=== PATIENT | male | born 1975 | race Caucasian/White ===

== ENCOUNTER → 2019-08-22 | Outpatient (REF) | payer BC ==
[2019-08-22 12:51] LABS: BASO % 0.2 % (0.0-1.0); EOS # 0.1 10^3/uL (0.0-0.5); EOS % 1.4 % (0.0-3.0); HEMATOCRIT 47.1 % (42.0-52.0); HEMOGLOBIN 16.6 g/dl (13.5-17.5); LYMPH # 1.4 10^3/uL (1.5-5.0); LYMPH % 28.4 % (24.0-44.0); MEAN CORPUSCULAR HEMOGLOBIN 30.9 pg (27.0-33.0); MEAN CORPUSCULAR HGB CONC 35.2 g/dl (32.0-36.5); MEAN CORPUSCULAR VOLUME 87.7 fl (80.0-96.0); MONO # 0.4 10^3/uL (0.0-0.8); MONO % 8.6 % (0.0-5.0); NEUTROPHILS % 61.2 % (36.0-66.0); PLATELET COUNT, AUTOMATED 166 10^3/uL (150-450); RED BLOOD COUNT 5.37 10^6/uL (4.30-6.10); WHITE BLOOD COUNT 4.9 10^3/uL (4.0-10.0)
[2019-08-22 13:39] LABS: ALBUMIN 4.2 GM/DL (3.2-5.2); ALT/SGPT 38 U/L (12-78); BILIRUBIN,TOTAL 1.8 MG/DL (0.2-1.0); BLOOD UREA NITROGEN 14 MG/DL (7-18); CALCIUM LEVEL 9.4 MG/DL (8.5-10.1); CARBON DIOXIDE LEVEL 31 MEQ/L (21-32); CHLORIDE LEVEL 103 MEQ/L (98-107); CHOLESTEROL LEVEL 159 MG/DL (<200); CHOLESTEROL RISK RATIO 2.944 (<5); CREATININE FOR GFR 0.92 MG/DL (0.70-1.30); FREE T4 1.35 NG/DL (0.76-1.46); GLOMERULAR FILTRATION RATE > 60.0 (>60); GLUCOSE, FASTING 100 MG/DL (70-100); HDL CHOLESTEROL 54 MG/DL (>40); LDL CHOLESTEROL 87 MG/DL (<100); MAGNESIUM LEVEL 2.2 MG/DL (1.8-2.4); NON-HDL-C 105 MG/DL; POTASSIUM SERUM 4.3 MEQ/L (3.5-5.1); SODIUM LEVEL 138 MEQ/L (136-145); TOTAL PROTEIN 7.9 GM/DL (6.4-8.2); TRIGLYCERIDES LEVEL 89 MG/DL (<150)
== END ==
LOC: M SFHCADAM 10:40
PROVIDERS: ATTEND Physician Assistant
DX: R00.2 Palpitations (principal); E66.01 Morbid (severe) obesity due to excess calories; Z13.1 Encounter for screening for diabetes mellitus; Z13.220 Encounter for screening for lipoid disorders

== ENCOUNTER → 2019-08-31 | Outpatient (CLI) | payer BC ==
--- NOTE | 2019-09-02 16:18 | ECHO ---
DATE OF PROCEDURE: 09/02/2019 REFERRING PHYSICIAN: Mirella Villeda [employer]ician [employer] INDICATION: Palpitations. HEIGHT: 172 cm WEIGHT: 121.1 kg 2D MEASUREMENTS: Aortic root: 3.4 cm Left atrium: 3.7 cm Ventricular septum: 0.83 cm Posterior wall: 0.99 cm Left ventricle diastole: 5.1 cm Aortic annulus: 1.9 cm Inferior vena cava: 1.4 cm (more than 50% respiratory variation) DOPPLER MEASUREMENTS: Aortic valve velocity: 94.7 cm/s LVOT velocity: 66.0 cm/s No aortic stenosis. No aortic regurgitation. No mitral stenosis. No mitral regurgitation. Mitral E velocity: 76.3 cm/s Mitral A velocity: 63.8 cm/s Mitral deceleration time: 114 ms Very mild tricuspid regurgitation. Estimated right ventricle systolic pressure: 31-36 mmHg. No pulmonic regurgitation. Pulmonary acceleration time: 132 ms MITRAL ANNULAR TISSUE DOPPLER: E prime lateral: 11.9 cm/s DESCRIPTION: Observed rhythm was sinus bradycardia and sinus rhythm. This was a moderately technically difficult echocardiogram. This was a 2D, M-mode, color flow Doppler and pulse wave Doppler examination and included mitral annular tissue Doppler. CONCLUSIONS: 1. Normal left ventricle internal dimensions and wall thickness. Normal regional left ventricular (LV) wall motion and wall thickening. Normal LV systolic function. Left ventricular ejection fraction (LVEF) 60% by visual estimate. Normal LV diastolic function. 2. Suggestive of mild elevation of estimated right ventricle systolic pressure. 3. Moderately technically difficult echocardiogram. 4. Otherwise normal appearing echocardiogram-Doppler.
--- NOTE | 2019-09-03 06:59 | HOLTMON ---
[facility] Test Date: 2019-08-31 Pat Name: REGI MAS Department: Room: - Gender: Male Set Builder: BRYRIAZ AG : 1975 Requested By: SHIVANI Moreno PA-C Order Number: [id number] Reading MD: Edward Lutz Interpretive Statements PT STATED NO SYMPTOMS No significant diary entries. Heart rate variability was blunted (42 to 110 bpm). There were rare PVC's and multiple PAC's but no significant runs greater than [address] events or pauses. No atrial fibrillation was seen. Electronically Signed on 09-03-2019 6:59:27 EDT by Edward Lutz
== END ==
LOC: M CARPUL 10:11
PROVIDERS: ATTEND Physician Assistant
DX: R00.2 Palpitations (principal)

== ENCOUNTER → 2019-09-02 | Outpatient (CLI) | payer BC | LOC: M EKG 11:00 | PROVIDERS: ATTEND Physician Assistant | DX: R00.2 Palpitations (principal) ==

== ENCOUNTER → 2020-04-16 | Outpatient (CLI) | payer SELFPAY | LOC: M LABSMTC 13:53 | PROVIDERS: ATTEND Pediatrics | DX: Z20.828 Contact with and (suspected) exposure to other viral communicable diseases (principal) ==

== ENCOUNTER 2022-03-15 15:15 | Emergency (ER) | payer BC ==
[~2022-03-15] VITALS: Ht 172.7 cm; Wt 131.7 kg
[2022-03-15] MEDS ORDERED: IBUP-1022 PO (15:22)
[2022-03-15] MEDS ORDERED: diazePAM 5MG TABLET PO ONE (20:10)
[2022-03-15] MEDS ORDERED: KETOROLAC 30 MG/ML 1ML VIAL IM ONE (20:10)
[2022-03-15] MEDS ORDERED: LIDOCAINE 5% (LIDODERM) PATCH TD ONE (20:10)
[2022-03-15] MEDS ORDERED: VALI5TAB PO (20:54)
[2022-03-15] MEDS ORDERED: LIDO5DIS41 TD (20:54)
[2022-03-15 21:06] VITALS: BP 158/94
== END 2022-03-15 21:13 | disposition home or self-care (01) ==
LOC: M ED 15:15
DX: M54.50 Low back pain, unspecified (principal); F10.10 Alcohol abuse, uncomplicated; Z79.899 Other long term (current) drug therapy
CPT/HCPCS: 96372; 99283; J1885

== ENCOUNTER → 2022-03-24 | Outpatient (CLI) | payer BC ==
[~2022-03-24] MED LIST: IBUP-1022 PO; LIDO5DIS41 TD; VALI5TAB PO
== END ==
LOC: M ADAMS 13:49
PROVIDERS: ATTEND Physician Assistant
DX: M79.672 Pain in left foot (principal); S39.012S Strain of muscle, fascia and tendon of lower back, sequela; M25.78 Osteophyte, vertebrae

== ENCOUNTER → 2022-06-10 | Outpatient (REF) | payer BC ==
[2022-06-10 13:08] LABS: HEMATOCRIT 44.9 % (42.0-52.0); HEMOGLOBIN 15.8 g/dl (13.5-17.5); MEAN CORPUSCULAR HEMOGLOBIN 30.9 pg (27.0-33.0); MEAN CORPUSCULAR HGB CONC 35.2 g/dl (32.0-36.5); MEAN CORPUSCULAR VOLUME 87.9 fl (80.0-96.0); PLATELET COUNT, AUTOMATED 181 10^3/uL (150-450); RED BLOOD COUNT 5.11 10^6/uL (4.30-6.10); WHITE BLOOD COUNT 4.9 10^3/uL (4.0-10.0)
[2022-06-10 13:12] LABS: ALBUMIN 4.1 G/DL (3.2-5.2); ALKALINE PHOSPHATASE 68 U/L (46-116); ALT/SGPT 43 U/L (7.0-40); AST/SGOT 32 U/L (<34); BILIRUBIN,TOTAL 1.4 MG/DL (0.3-1.2); BLOOD UREA NITROGEN 17 MG/DL (9-23); CALCIUM LEVEL 9.4 MG/DL (8.5-10.1); CARBON DIOXIDE LEVEL 27 MMOL/L (20-31); CHLORIDE LEVEL 103 MMOL/L (98-107); CHOLESTEROL LEVEL 153 MG/DL (<200); CHOLESTEROL RISK RATIO 3.14 (<5); CREATININE FOR GFR 0.82 MG/DL (0.70-1.30); GLOMERULAR FILTRATION RATE > 60.0 (>60); GLUCOSE, FASTING 101 MG/DL (60-100); HDL CHOLESTEROL 48.6 MG/DL (>40); LDL CHOLESTEROL 80.6 MG/DL (<100); NON-HDL-C 104 MG/DL; POTASSIUM SERUM 4.4 MMOL/L (3.5-5.1); SODIUM LEVEL 138 MMOL/L (136-145); TOTAL PROTEIN 7.2 G/DL (5.7-8.2); TRIGLYCERIDES LEVEL 119 MG/DL (<150)
[2022-06-10 13:28] LABS: HEMOGLOBIN A1c 4.8 % (4.0-6.0)
[2022-06-10 13:29] LABS: CREATININE, URINE 48.4 MG/DL
[2022-06-10 13:30] LABS: MALB URINE SIEMENS < 3.0 MG/DL; MAU/CREAT RATIO 6.1 MCG/MG (0.0-30.0)
== END ==
LOC: M SFHCADAM 08:58
PROVIDERS: ATTEND Physician Assistant
DX: I10 Essential (primary) hypertension (principal); Z68.42 Body mass index [BMI] 45.0-49.9, adult; E66.01 Morbid (severe) obesity due to excess calories; K21.9 Gastro-esophageal reflux disease without esophagitis; Z12.11 Encounter for screening for malignant neoplasm of colon; Z13.220 Encounter for screening for lipoid disorders; Z13.1 Encounter for screening for diabetes mellitus

== ENCOUNTER 2022-09-06 12:00 | Day surgery (SDC) | payer BC ==
[~2022-09-06] VITALS: Ht 172.7 cm; Wt 128.5 kg
[~2022-09-06 12:00] MED LIST changes: +NS 1,000 ML IV ONE
[2022-09-06] MEDS ORDERED: propofoL 200 MG/20 ML VIAL As Ordered ONE ×6 (13:23→14:39)
[2022-09-06] MEDS ORDERED: LIDOCAINE 2% 100MG/5ML SDV (FOR ANES.) As Ordered ONE (13:53)
[2022-09-06 15:12] VITALS: BP 129/86
== END 2022-09-06 16:01 | disposition home or self-care (01) ==
LOC: M OPP 12:00
PROVIDERS: ATTEND Internal Medicine Gastroenterology
DX: Z12.11 Encounter for screening for malignant neoplasm of colon (principal); K63.5 Polyp of colon; K64.8 Other hemorrhoids; K31.7 Polyp of stomach and duodenum; K31.89 Other diseases of stomach and duodenum

== ENCOUNTER → 2022-09-23 | Outpatient (CLI) | payer BC ==
[~2022-09-23] MED LIST changes: +GLUCAGON INJ 1MG VIAL As Ordered ONE; +ISOVUE-370 76% 100ML VIAL As Ordered ONE; +NEULUMEX 0.1% SUSPENSION 450ML BOTTLE (FORMERLY VOLUMEN) As Ordered ONE; -NS 1,000 ML IV ONE
== END ==
LOC: M RAD 09:41
PROVIDERS: ATTEND Internal Medicine Gastroenterology
DX: D37.2 Neoplasm of uncertain behavior of small intestine (principal); D37.6 Neoplasm of uncertain behavior of liver, gallbladder and bile ducts
CPT/HCPCS: 74177; J1610; Q9967

== ENCOUNTER 2022-10-11 11:46 | Day surgery (SDC) | payer BC ==
[~2022-10-11] VITALS: Ht 172.7 cm; Wt 129.8 kg
[~2022-10-11 11:46] MED LIST changes: -GLUCAGON INJ 1MG VIAL As Ordered ONE; -ISOVUE-370 76% 100ML VIAL As Ordered ONE; -NEULUMEX 0.1% SUSPENSION 450ML BOTTLE (FORMERLY VOLUMEN) As Ordered ONE; +NS 1,000 ML IV ONE
[2022-10-11] MEDS ORDERED: fentaNYL 100 MCG/2 ML INJECTION As Ordered ONE (14:20)
[2022-10-11] MEDS ORDERED: propofoL 200 MG/20 ML VIAL As Ordered ONE (14:21)
[2022-10-11] MEDS ORDERED: LIDOCAINE 2% 100MG/5ML SDV (FOR ANES.) As Ordered ONE (14:21)
[2022-10-11 15:13] VITALS: BP 122/70; O2SAT 97
== END 2022-10-11 15:23 | disposition home or self-care (01) ==
LOC: M OPP 11:46
PROVIDERS: ATTEND Internal Medicine Gastroenterology
DX: K31.7 Polyp of stomach and duodenum (principal); K31.89 Other diseases of stomach and duodenum
CPT/HCPCS: 43251; 88305; J3010